=== PATIENT | male | born 1975 | race African-American/Black ===

== ENCOUNTER 2019-05-05 21:40 | Inpatient (IN) ==
[2019-05-05] MEDS ORDERED: DUONEB (A & A) INH ONE (22:01)
[2019-05-05] MEDS ORDERED: TORADOL IV ONE (22:01)
--- NOTE | 2019-05-05 23:36 | EKG Report ---
Test Performed on : 05/05/2019 9:51:57 PM Test Reason : cp Blood Pressure : / mmHG Vent. Rate : 110 BPM Atrial Rate : 110 BPM P-R Int : 176 ms QRS Dur : 090 ms QT Int : 326 ms P-R-T Axes : 075 084 064 degrees QTc Int : 441 ms Sinus tachycardia. Possible Left atrial enlargement Borderline ECG When compared with ECG of 19-DEC-2016 22:48, No significant change was found Confirmed by Alec Jenkins MD ([id number]) on 05/21/2019 7:37:13 AM
[2019-05-05] MEDS ORDERED: ASPIRIN PO ONE (23:49)
[2019-05-06 00:07] LABS: BASO# 0.06 X1000 (0.0-0.2); BASO% 0.3 % (0.0-0.8); EOS# 0.25 X1000 (0.0-0.7); EOS% 1.1 % (0.0-10.0); HEMATOCRIT 40.2 % (42.0-52.0); HEMOGLOBIN 13.4 g/dL (14.0-18.0); IMM GRAN# 0.07 X1000 (0.0-0.04); IMM GRAN% 0.3 % (0.0-0.5); LYMPH% 10.6 % (20.5-51.1); MCH 27.5 PG (27-31); MCHC 33.3 g/dL (33-37); MCV 82.5 FL (81-99); MONO# 2.02 X1000 (0.11-0.59); MONO% 9.3 % (1.7-9.3); MPV 9.1 FL (7.4-10.4); NEUT# 17.07 X1000 (1.4-6.5); NEUT% 78.4 % (42.2-75.2); PLT 368 X1000 (130-400); RBC 4.87 XMIL (4.7-6.1); RDW 14.1 % (11.5-14.5); WBC 21.77 X1000 (4.8-10.8)
[2019-05-06 00:08] LABS: INR 0.87; PROTIME 12.3 Seconds (11.0-16.0)
[2019-05-06 00:09] LABS: PTT 27.4 Seconds (22.3-41.8)
[2019-05-06 00:16] LABS: AGAP 17; ALBUMIN 5.1 g/dL (3.5-5.0); ALKALINE PHOSPHATASE 93 U/L (32-122); BUN 7 mg/dL (8-22); CALCIUM 10.2 mg/dL (8.8-10.2); CHLORIDE 100 mmol/L (98-107); COSMO 285; ESTIMATED GFR > 60; GLUCOSE 97 mg/dL (70-104); GOT 30 U/L (10-34); GPT 16 U/L (10-44); POTASSIUM 3.7 mmol/L (3.5-5.1); SODIUM 144 mmol/L (136-145); TCO2 27 mmol/L (25-35); TOTAL PROTEIN 8.2 g/dL (6.3-8.3)
[2019-05-06] MEDS ORDERED: ROCEPHIN 1 GM in NS 50 ML IV ONE (00:18)
[2019-05-06 00:21] LABS: UR AMPHETAMINES QUAL NONE DETECTED (NONE DETECT); UR BARBITUATES QUAL NONE DETECTED (NONE DETECT); UR BENZODIAZEPIN QUAL NONE DETECTED (NONE DETECT); UR CANNABINOIDS QUAL PRESUMPTIVE POSITIVE (NONE DETECT); UR COCAINE QUAL NONE DETECTED (NONE DETECT); UR METHADONE QUAL NONE DETECTED (NONE DETECT); UR METHAMPHETAMINE QUAL NONE DETECTED (NONE DETECT); UR OPIATES QUAL NONE DETECTED (NONE DETECT); UR OXYCODONE QUAL NONE DETECTED (NONE DETECT); UR PCP QUAL NONE DETECTED (NONE DETECT); UR PROPOXYPHENE QUAL NONE DETECTED (NONE DETECT); UR TCA QUAL NONE DETECTED (NONE DETECT)
[2019-05-06] MEDS ORDERED: TORADOL IV ONE (00:30)
[2019-05-06 00:32] LABS: URINE SOURCE CLEAN CATCH
[2019-05-06 00:57] LABS: BILIRUBIN URINE NEGATIVE (NEGATIVE); BLOOD URINE NEGATIVE (NEGATIVE); COLOR STRAW; GLUCOSE URINE NEGATIVE (NEGATIVE); KETONE URINE NEGATIVE (NEGATIVE); LEUKOCYTES URINE NEGATIVE (NEGATIVE); NITRITE URINE NEGATIVE (NEGATIVE); PH URINE 6.5; PROTEIN URINE NEGATIVE (NEGATIVE); SP GRAVITY URINE 1.005; TURBIDITY URINE CLEAR (CLEAR); UROBILINOGEN URINE NORMAL (NORMAL)
[2019-05-06 00:58] LABS: UR EPITHELIAL CELLS <10 /HPF (<10); URINE BACTERIA NEGATIVE /HPF; URINE RBC <10 /HPF (<10); URINE WBC <10 /HPF (<10)
--- NOTE | 2019-05-06 05:23 | PROVIDER DOCUMENTATION ---
This chart was entered by Christina Harris Scribe, acting as scribe for Kendall Segura MD. HPI-Chest Pain - General Chief Complaint: Chest Pain Stated Complaint: CHEST PAIN Time Seen by Provider: 05/05/19 21:55 Source: patient Allergies/Adverse Reactions: Patient Allergies Allergy/AdvReac Type Severity Reaction Status Date / Time No Known Allergies Allergy Verified 05/06/19 01:54 Home Medications: Home Medication List Medication Instructions Recorded Confirmed Last Taken Type NK [No Home Medications] 05/06/19 05/06/19 Unknown History - History of Present Illness-CP Nature of Presenting Problem: pt is a 43 yobm c/o cp radiating to neck, low back pain, cough, and mild sob since last night. pt sts just got over cold x 1 wk ago. coughing and breathing makes symptoms worse. pt has no medicial hx, no known rx allergies and doesn't take any regular rx. pt is a smoker. Location: reports: other (all over) Chest Pain Radiation: reports: neck Severity in ED: mild Onset/Duration: last night Timing: still present Context/Activities at Onset: reports: none Modifying Factors: improves with: breathing (worsens), coughing (worsens) Associated Symptoms: denies: diaphoresis, fever/chills, nausea, vomiting Similar Symptoms Previously?: No Review of Systems - Adult - REVIEW OF SYSTEMS - ADULT Constitutional: reports: no symptoms reported. denies: fever, fatique, night sweats Eyes: reports: no symptoms reported Ears, Nose, Mouth & Throat: reports: no symptoms reported Cardiovascular: reports: see HPI, chest pain. denies: heart murmur, irregular heart rate, poor circulation Respiratory: reports: see HPI, cough, shortness of breath (mild). denies: pleurisy, wheezing Gastrointestinal: reports: no symptoms reported. denies: diarrhea, nausea, vomiting Genitourinary: reports: no symptoms reported Musculoskeletal: reports: see HPI, back pain (low back), neck pain Integumentary: reports: no symptoms reported Neurological: reports: no symptoms reported Psychiatric: reports: no symptoms reported Endocrine: reports: no symptoms reported Hematologic/Lymphatic: reports: no symptoms reported Allergic/Immunologic: reports: no symptoms reported All Other Systems: Reviewed and Negative Past History - Adult - PAST MEDICAL HISTORY-ADULT Review of Records: reports: Nursing Assessment Review, Medications Reviewed, Social history reviewed & non-contributory. Major Childhood Illnesses: reports: denies history Cardiovascular: reports: denies history Respiratory: reports: denies history Gastrointestinal: reports: denies history Obstetrical/Gynecological: reports: denies history Genitourinary: reports: denies history Musculoskeletal: reports: denies history Neurological: reports: denies history Endocrine/Immune: reports: denies history Other Conditions: reports: denies history - PRIOR SURGERIES/PROCEDURES Surgical/Procedure History: reports: none - IMMUNIZATION STATUS Childhood Immunizations: See Nurse Assessment Flu Vaccine: See Nurse Assessment - FAMILY HISTORY Family History: reviewed, not pertinent - SOCIAL HISTORY Smoking: cigarettes, greater than 1 pack/day Provider spent 3-5 mins advising pt. on dangers of tobacco.: Discussed manners to quit use, and f/u contacts for add'l counseling. Substance Use: alcohol, marijuana Alcohol Use Frequency: every day Number of drinks per typical drinking period:: 3-4 drinks Physical Exam-General - PHYSICAL EXAM-ADULT Initial Vital Signs Reviewed: Yes - CONSTITUTIONAL General Appearance: appears well, alert, no apparent distress. negative: l ethargic, slow to respond, obtunded - EYES Eyes: PERRL/EOMI, pink conjunctivae - HEAD, EARS, NOSE, MOUTH & THROAT HENMT: normocephalic/atraumatic, moist mucous membranes, normal ENT inspection - NECK Neck: non-tender, full range of motion, supple, normal inspection - RESPIRATORY Respiratory: lungs clear, normal breath sounds, no pleuratic chest pain, no respiratory distress, no accessory muscle use, other (chest wall reproducable). negative: chest non-tender, respiratory distress, decreased breath sounds, accessory muscle use, crepitus - CARDIOVASCULAR Cardiovascular: normal peripheral pulses, regular rate, rhythm, no edema, no gallop, no JVD, no murmur. negative: friction rub, irregularly irregular, PMI displaced laterally - CHEST (BREASTS) Chest/Breast: normal breast inspection, no masses/lumps, tenderness (chest wall reproducable). negative: no tenderness, nipple discharge, mass/lump noted - GASTROINTESTINAL (ABDOMEN) Abdominal Exam: normal bowel sounds, non tender, soft - LYMPHATIC Lymphatic: no adenopathy - MUSCULOSKELETAL Back Exam: normal inspection, no CVA tenderness, no vertebral tenderness Extremity: normal range of motion, non-tender, normal inspection Peripheral Pulses: radial (R): 2+, radial (L): 2+ - SKIN Integumentary: normal color, normal turgor, warm/dry. negative: diaphoresis - NEUROLOGIC Neurologic: collar sewer II-XII nml as tested, grossly normal, no motor/sensory deficits - PSYCHIATRIC Psych/Mental Status: normal mood/affect, normal thought content, normal thought process, oriented x 3 - HEART Score HEART Score: History: Slightly Suspicious HEART Score: ECG: Non-Specific Repolarization Disturbance/LBBB/PM HEART Score: Age: < or = 45 Years HEART Score: Risk Factors for Atherosclerotic Disease: 1 or 2 Risk Factors HEART Score: Troponin: < or = Normal Limit Total HEART Score:: 2 Progress - PLAN OF CARE/RESULTS Progress/Plan/Lab Results: Vital Signs - 8 hr 05/05/19 21:53 05/05/19 22:24 05/06/19 00:45 Temperature 100.0 F H Pulse Rate 107 H 96 H Respiratory Rate 18 19 Blood Pressure 123/080 131/78 O2 Sat by Pulse Oximetry 99 96 05/06/19 02:14 Temperature Pulse Rate 95 H Respiratory Rate 18 Blood Pressure 144/82 O2 Sat by Pulse Oximetry 97 Laboratory Results - last 24 hr 05/05/19 05/05/19 05/05/19 23:26 23:35 23:35 WBC 21.77 H RBC 4.87 Hgb 13.4 L Hct 40.2 L MCV 82.5 MCH 27.5 MCHC 33.3 RDW Std Deviation 14.1 Plt Count 368 MPV 9.1 Immature Gran % (Auto) 0.3 Neut % (Auto) 78.4 H Lymph % (Auto) 10.6 L [place] % (Auto) 9.3 Eos % (Auto) 1.1 Baso % (Auto) 0.3 Immature Gran # (Auto) 0.07 H Neut # (Auto) 17.07 H Lymph # (Auto) 2.30 [place]och # (Auto) 2.02 H Eos # (Auto) 0.25 Baso # (Auto) 0.06 PT INR PTT (Actin FS) D-Dimer, Quantitative Sodium Potassium Chloride Carbon Dioxide Anion Gap BUN Creatinine Estimated GFR/1.73 m2 BUN/Creatinine Ratio Glucose Calculated Osmolality Calcium Total Bilirubin AST ALT Alkaline Phosphatase Troponin T < 0.010 Koo-H-Rdpseuksugw Pept Total Protein Albumin Globulin Albumin/Globulin Ratio Plasma Lactate Urine Source CLEAN CATCH Urine Color STRAW Urine Turbidity CLEAR Urine pH 6.5 Ur Specific [place] 1.005 Urine Protein NEGATIVE Ur Glucose (Stick) NEGATIVE Ur Ketones (Stick) NEGATIVE Urine Blood NEGATIVE Urine Nitrite NEGATIVE Urine Bilirubin NEGATIVE Urobilinogen Dipstick NORMAL Urine Leukocytes NEGATIVE Urine WBC (Auto) <10 Urine RBC (Auto) <10 U Epithel Cells (Auto) <10 Urine Bacteria (Auto) NEGATIVE Urine Opiates Screen Ur Oxycodone Screen Urine Methadone Screen U Propoxyphene Qual Ur Barbituates Screen Ur Tricyclics Screen Ur Phencyclidine Scrn Ur Amphetamines Screen U Methamphetamines Scrn U Benzodiazepines Scrn Urine Cocaine Screen U Cannabinoids Screen 05/05/19 05/05/19 05/05/19 23:35 23:35 23:35 WBC RBC Hgb Hct MCV MCH MCHC RDW Std Deviation Plt Count MPV Immature Gran % (Auto) Neut % (Auto) Lymph % (Auto) [place] % (Auto) Eos % (Auto) Baso % (Auto) Immature Gran # (Auto) Neut # (Auto) Lymph # (Auto) [place] # (Auto) Eos # (Auto) Baso # (Auto) PT 12.3 INR 0.87 PTT (Actin FS) 27.4 D-Dimer, Quantitative Sodium 144 Potassium 3.7 Chloride 100 Carbon Dioxide 27 Anion Gap 17 BUN 7 L Creatinine 1.0 Estimated GFR/1.73 m2 > 60 BUN/Creatinine Ratio 7 Glucose 97 Calculated Osmolality 285 Calcium 10.2 Total Bilirubin 0.30 AST 30 ALT 16 Alkaline Phosphatase 93 Troponin T Llz-A-[place] Pept 52 Total Protein 8.2 Albumin 5.1 H Globulin 3.0 Albumin/Globulin Ratio 2.0 Plasma Lactate Urine Source Urine Color Urine Turbidity Urine pH Ur Specific [place] Urine Protein Ur Glucose (Stick) Ur Ketones (Stick) Urine Blood Urine Nitrite Urine Bilirubin Urobilinogen Dipstick Urine Leukocytes Urine WBC (Auto) Urine RBC (Auto) U Epithel Cells (Auto) Urine Bacteria (Auto) Urine Opiates Screen Ur Oxycodone Screen Urine Methadone Screen U Propoxyphene Qual Ur Barbituates Screen Ur Tricyclics Screen Ur Phencyclidine Scrn Ur Amphetamines Screen U Methamphetamines Scrn U Benzodiazepines Scrn Urine Cocaine Screen U Cannabinoids Screen 05/05/19 05/05/19 05/06/19 23:35 23:47 00:35 WBC RBC Hgb Hct MCV MCH MCHC RDW Std Deviation Plt Count MPV Immature Gran % (Auto) Neut % (Auto) Lymph % (Auto) M[place] % (Auto) Eos % (Auto) Baso % (Auto) Immature Gran # (Auto) Neut # (Auto) Lymph # (Auto) [place] # (Auto) Eos # (Auto) Baso # (Auto) PT INR PTT (Actin FS) D-Dimer, Quantitative 0.49 Sodium Potassium Chloride Carbon Dioxide Anion Gap BUN Creatinine Estimated GFR/1.73 m2 BUN/Creatinine Ratio Glucose Calculated Osmolality Calcium Total Bilirubin AST ALT Alkaline Phosphatase Troponin T Lev-R-Ufjnmsqkiek Pept Total Protein Albumin Globulin Albumin/Globulin Ratio Plasma Lactate 1.6 Urine Source Urine Color Urine Turbidity Urine pH Ur Specific [place] Urine Protein Ur Glucose (Stick) Ur Ketones (Stick) Urine Blood Urine Nitrite Urine Bilirubin Urobilinogen Dipstick Urine Leukocytes Urine WBC (Auto) Urine RBC (Auto) U Epithel Cells (Auto) Urine Bacteria (Auto) Urine Opiates Screen NONE DETECTED Ur Oxycodone Screen NONE DETECTED Urine Methadone Screen NONE DETECTED U Propoxyphene Qual NONE DETECTED Ur Barbituates Screen NONE DETECTED Ur Tricyclics Screen NONE DETECTED Ur Phencyclidine Scrn NONE DETECTED Ur Amphetamines Screen NONE DETECTED U Methamphetamines Scrn NONE DETECTED U Benzodiazepines Scrn NONE DETECTED Urine Cocaine Screen NONE DETECTED U Cannabinoids Screen PRESUMPTIVE POSITIVE A Orders Category Date Time Status CHEST-1 VIEW [RAD] Stat Exams 05/05/19 21:[address] ABD/PELVIS W/IV CONT ONLY [CT] Stat Exams 05/06/19 00:[address] ANGIOGRM PULMONARY ARTERIES [CT] Stat Exams 05/06/19 05:15 Ordered BLOOD CULTURE [BLDCUL] Stat Lab 05/06/19 00:35 Ordered CBC WITH ELECTRONIC DIFF [HEME] Stat Lab 05/05/19 23:35 Completed COMPREHENSIVE METABOLIC PANEL [CHEM] Stat Lab 05/05/19 23:35 Completed D-DIMER [COAG] Stat Lab 05/06/19 01:46 Completed LACTATE, PLASMA [CHEM] Stat Lab 05/06/19 00:35 Completed PRO B-NATRIURETIC PEPTIDE Stat Lab 05/05/19 23:35 Completed PT [PROTIME WITH INR] [COAG] Stat Lab 05/05/19 23:35 Completed PTT [COAG] Stat Lab 05/05/19 23:35 Completed TROPONIN T Stat Lab 05/05/19 23:35 Completed UA [URINALYSIS W/POSS RFLX CULT] [URINALYSIS] Stat Lab 05/05/19 23:26 Completed URINE DRUG SCREEN PL Stat Lab 05/05/19 23:47 Completed Albuterol 2.5MG/Ipratrop 0.5MG [Duoneb (A & A)] Med 05/05/19 22:01 Discontinued 3 ml INH NOW ONE Aspirin Med 05/05/19 23:49 Discontinued 325 mg PO NOW ONE CefTRIAXONE [Rocephin] 1 gm Med 05/06/19 00:18 Discontinued 0.9% Sodium Chloride Inj [Ns] 50 ml IV NOW Ketorolac [Toradol] Med 05/06/19 00:30 Discontinued 15 mg IV NOW ONE Aerosol Treatments Routine Oth 05/05/19 22:01 Active Aerosol Treatments Stat Oth 05/05/19 22:01 Active EKG [EKG] Stat Ther 05/05/19 21:56 Draft Result Diagrams: 05/05/19 23:35 05/05/19 23:35 - EKG 1 Time of EKG reading by physician:: 23:46 EKG Read and Signed by:: Kendall Segura EKG Interpretation (*Must complete 3 of following elements*): Abnormal Rate: 88 Rhythm: NSR [place]: normal QRS: normal SC Interval: normal ST Wave: normal Comments: bilateral enlargement - CONSULTS/PCP/HOSPITALIST Notification #1 *Consult/PCP/Hospitalist*: Dr Sterling Time Discussed: 05:23 Consult Disposition: Admit Departure - Departure Date of Disposition Decision: 05/06/19 Time of Disposition Decision: 05:20 DIAGNOSIS: Leukocytosis, Chest pain, Cough Disposition: ADMITTED INPATIENT 09 Certified Medical Emergency: Emergent Condition: Fair Referrals and Follow-Ups: None,PCP [Primary Care Provider] - Work Excuses: Return to School/Parent Work Discharge Education: Steps to Quit Smoking, [id number] - Critical Care Note This patient required my direct & personal management of CC.: No Attestation - Physician/ KIRSTEN Attestation Patient care was provided by Advanced Practice Provider:: No The physician spent face to face time with patient:: Yes Advanced Practice Provider documentation review:: Supervising physician onsite and consulted in the evaluation and care of this patient. The physician did have a face to face encounter with the patient. This chart was documented by the indicated scribe, (Christina Harris, [place]) and accurately reflects the services I performed and decisions made by me, Kendall Barboza MD, as attested by the provider's signature.
[2019-05-06] MEDS ORDERED: ASPIRIN PO ONE (05:27)
[2019-05-06] MEDS: LEVAQUIN 500 MG/D5W 500 MG/100 ML IVPB IV SCH (06:05)
[2019-05-06] MEDS ORDERED: TYLENOL PO PRN (06:27)
--- NOTE | 2019-05-06 07:11 | Diag Imaging Result Doc PS360 ---
EXAM: CHEST-1 VIEW 05/05/2019 HISTORY: chest pain TECHNIQUE: Erect AP portable at 2220 COMMENT: There is no evidence of acute cardiac or pulmonary disease and compared to the previous study of 06/24/2015 considering differences in technique there has been no significant change. IMPRESSION: Normal chest. Electronically signed by Pankaj Aquino 05/06/2019 7:09 AM
[2019-05-06] MEDS: DUONEB (A & A) INH SCH ×5 (07:30→22:52)
--- NOTE | 2019-05-06 07:36 | Diag Imaging Result Doc PS360 ---
EXAM: CT ABD/PELVIS W/IV CONT ONLY HISTORY: RLQ abdo pain TECHNIQUE: CT abdomen and pelvis with intravenous contrast COMPARISON: None. FINDINGS: No calcified gallstones or adjacent inflammation. Normal liver, spleen, pancreas, and adrenal glands. There is a 1.4 cm left renal cyst. No hydronephrosis. No aortic aneurysm. Mild atherosclerosis. No bowel obstruction. Normal appendix. No abscess. No ascites. Urinary bladder is distended and appears normal. Normal prostate. IMPRESSION: No acute abnormality. A preliminary report was given at 1:24 AM This exam was performed using automated exposure control, adjustment of mA or kV according to patient size, and/or use of iterative reconstruction technique. Electronically signed by Felix Song 05/06/2019 7:34 AM
--- NOTE | 2019-05-06 07:43 | Diag Imaging Result Doc PS360 ---
EXAM: CT ANGIOGRM PULMONARY ARTERIES HISTORY: cough, leukocytosis TECHNIQUE: CT chest with intravenous contrast. Pulmonary arterial protocol with MIP images. COMPARISON: None. FINDINGS: No pleural effusions. No aortic aneurysm or dissection. Normal opacification of the pulmonary arteries and their branches. No cardiomegaly. No enlarged lymph nodes. There are tiny groundglass infiltrates scattered in the lungs. No consolidation. No bronchiectasis. IMPRESSION: 1. No pulmonary emboli 2. Small scattered groundglass infiltrates A preliminary report was given at 6:25 AM This exam was performed using automated exposure control, adjustment of mA or kV according to patient size, and/or use of iterative reconstruction technique. Electronically signed by Felix Song 05/06/2019 7:40 AM
[2019-05-06] MEDS ORDERED: ZOFRAN IV PRN (08:14)
[2019-05-06] MEDS ORDERED: NS 1,000 ML IV PRN (08:14)
--- NOTE | 2019-05-06 08:32 | EKG Report ---
Test Performed on : 05/05/2019 11:46:30 PM Test Reason : re-eval for chest pain Blood Pressure : / mmHG Vent. Rate : 088 BPM Atrial Rate : 088 BPM P-R Int : 126 ms QRS Dur : 082 ms QT Int : 364 ms P-R-T Axes : 077 084 074 degrees QTc Int : 440 ms Normal sinus rhythm. Biatrial enlargement Abnormal ECG When compared with ECG of 05-MAY-2019 21:51, (Unconfirmed) No significant change was found Unconfirmed Result
[2019-05-06] MEDS ORDERED: LOVENOX SUBQ SCH (09:00)
[2019-05-06 09:29] LABS: BASO# 0.05 X1000 (0.0-0.2); BASO% 0.4 % (0.0-0.8); EOS# 0.24 X1000 (0.0-0.7); HEMATOCRIT 37.2 % (42.0-52.0); HEMOGLOBIN 12.4 g/dL (14.0-18.0); IMM GRAN# 0.02 X1000 (0.0-0.04); IMM GRAN% 0.2 % (0.0-0.5); LYMPH# 1.79 X1000 (1.2-3.4); LYMPH% 14.7 % (20.5-51.1); MCH 27.7 PG (27-31); MCHC 33.3 g/dL (33-37); MCV 83.2 FL (81-99); MONO# 1.75 X1000 (0.11-0.59); MONO% 14.4 % (1.7-9.3); MPV 8.8 FL (7.4-10.4); NEUT# 8.31 X1000 (1.4-6.5); NEUT% 68.3 % (42.2-75.2); PLT 336 X1000 (130-400); RBC 4.47 XMIL (4.7-6.1); RDW 14.2 % (11.5-14.5); WBC 12.16 X1000 (4.8-10.8)
[2019-05-06 09:37] LABS: HEMOGLOBIN A1C 5.6 % (4.8-6.0)
[2019-05-06 10:10] LABS: AGAP 13; ALBUMIN 4.1 g/dL (3.5-5.0); ALKALINE PHOSPHATASE 77 U/L (32-122); BUN 9 mg/dL (8-22); CALCIUM 9.2 mg/dL (8.8-10.2); CHLORIDE 100 mmol/L (98-107); COSMO 280; CREATININE 1.1 mg/dL (0.7-1.2); ESTIMATED GFR > 60; GLUCOSE 103 mg/dL (70-104); GOT 22 U/L (10-34); GPT 12 U/L (10-44); POTASSIUM 3.5 mmol/L (3.5-5.1); SODIUM 141 mmol/L (136-145); TCO2 28 mmol/L (25-35); TOTAL PROTEIN 7.1 g/dL (6.3-8.3)
[2019-05-06 10:26] LABS: INFLUENZA A NEGATIVE (NEGATIVE); INFLUENZA B NEGATIVE (NEGATIVE)
[2019-05-06 10:35] LABS: FREE T4 0.94 ng/dL (0.93-1.70); TSH 0.96 uIUmL (0.27-4.20)
[2019-05-06 11:02] LABS: CK INDEX 0.1 (0.0-2.5)
[2019-05-06 14:41] LABS: C REACTIVE PROT QUANT 84.06 mg/L (0.00-5.00)
[2019-05-06] MEDS ORDERED: ROCEPHIN 2 GM in NS 50 ML IV SCH (18:00)
--- NOTE | 2019-05-06 18:42 | ECHO REPORT ---
ORDER DATE: 05/06/2019 INTERPRETING PHYSICIAN: Espinoza Cavazos MD. CLINICAL INDICATIONS: A 43-year-old male with chest pain. M-MODE MEASUREMENTS: Left ventricle end diastole: 4.1 cm. Left ventricle end systole: 2.3 cm. Posterior wall: 1.0 cm. Interventricular septum: 1.0 cm. Left atrium: 2.8 cm. Aortic diameter: 3.1 cm. SUMMARY OF 2-DIMENSIONAL IMAGIN. The left ventricular function is normal. Ejection fraction is 69%. There is no wall motion abnormality. 2. The aortic valve has three cusps. They open normally. Color flow mapping unremarkable. 3. The pulmonic valve looks normal. Color flow mapping unremarkable. 4. The tricuspid valve shows a mild degree of regurgitation. 5. Pulmonary pressure is estimated at 34 mmHg. 6. The mitral valve looks normal. Color flow mapping unremarkable. 7. Pulsed wave Doppler of mitral inflow is normal. 8. Tissue Doppler of septal and lateral mitral annulus averages 16 cm. There is no diastolic dysfunction. 9. There is no pericardial effusion, no mass, and no thrombus. 10.The atria and the right ventricle are normal in size. SUMMARY: This study shows: 1. Normal left ventricular systolic function with ejection fraction of 69% with normal chamber size. 2. No diastolic dysfunction. 3. Pulmonary pressure of 34 mmHg. 4. No evidence of valvular abnormality. Clinical correlation is recommended. cc: MD Luz Marina Kim CRNP
--- NOTE | 2019-05-06 18:45 | HISTORY AND PHYSICAL ---
PRIMARY CARE PROVIDER: No one. CHIEF COMPLAINT: Shortness of breath. HISTORY OF PRESENT ILLNESS: Mr. Ko Morales is a 43-year-old, - [place] male. He has no medical history, takes no home medications. A few days ago, had been outside blowing some leaves, and then 2 nights ago, developed a cough, and he would have chest pain every time he coughed and he was producing yellow phlegm, which he states he is still producing. He denies fever, but states that when he came in, they told him he had fever. Imaging reveals that there is a bilateral pneumonia. He smokes cigarettes daily, but it is less than a half pack per day. He was started on IV antibiotics and the white blood cell count has already started to decrease. PAST MEDICAL HISTORY: None. SURGICAL HISTORY: None. SOCIAL HISTORY: Less than a half pack per day since the age of 16. Two to three 3 days a week. Marijuana last month. . 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 FAMILY HISTORY: Mother, no medical conditions. Father of unknown cancer. ALLERGIES: No known drug allergies. HOME MEDICATIONS: None. REVIEW OF SYSTEMS: A 14-point review of systems is complete and all were negative, except for those mentioned above in HPI. PHYSICAL EXAMINATION: VITAL SIGNS: Temperature 98.0 degrees, heart rate 81, respiratory rate 16, blood pressure 136/84, O2 saturation 100% on room air. GENERAL: Mr. Ko Morales is a 43-year-old, -[place] male. He is in no acute distress. He is able to answer questions appropriately. HEENT: Atraumatic, normocephalic. Pupils equal, round, reactive to light. Extraocular movements intact. Mucous membranes are moist. NECK: Trachea midline. CARDIOVASCULAR: S1, S2. Regular rate and rhythm. No rubs, gallops, murmurs. No lower extremity edema. Dorsalis and radial pulses 2+. Negative JVD or carotid bruits. PULMONARY: Clear to auscultate. Bilateral breath sounds, decreased in the bases. No accessory muscle use or work of breathing noted. GASTROINTESTINAL: Soft, nontender, nondistended. Positive bowel sounds x4. EXTREMITIES: Moves all extremities equally. Full range of motion. NEUROLOGIC: A O x3. Follows commands. Sensory is intact. SKIN: Warm, dry, intact. LABORATORY DATA: Original white blood cell count was 21,000, is down to 12,000. Hemoglobin 12, hematocrit 37, platelet count 336,000. Sodium 141, potassium 3.5, BUN 9, creatinine is 1.1, glucose is 103. Hemoglobin A1c is 5.6. Magnesium 2.0, bilirubin 0.20, AST 22, ALT 12. ProBNP 52. Albumin is 4.1. Triglycerides 74, total cholesterol 169. TSH 0.96, free T4 of 0.94. Serum lactate 1.6. Urinalysis negative. Urine drug screen positive for cannabinoid. Influenza negative. CK was 1094. Troponin less than 0.01. CRP pending. IMAGING: Chest x-ray: Normal chest. Abdominal and pelvic CT: No acute findings. Pulmonary arteriogram: No pulmonary emboli. Positive for small scattered ground-glass infiltrates. EKG: Sinus tachycardia, rate 110, QTc 441. Repeat EKG: Sinus rhythm, 88, QTc 440. ASSESSMENT AND PLAN: 1. Bilateral pneumonia scattered throughout the lungs. He was started on ceftriaxone in the ER, but transitioned to Levaquin and ceftriaxone both. Nebulizers every 4 hours, but he is not in any type of respiratory distress and white count has dropped from 21 to 12. Sputum culture has been ordered. 2. Tobacco abuse. Cessation discussed. 3. Deep venous thrombosis prophylaxis. Lovenox. Dictated by PARAG Mojica for Edward Ramos MD Addendum: Patient seen and examined by myself. Agree with PARAG note. It reflects my assessment and plan. Patient is being admitted to hospital for bilateral pneumonia. He is not requiring any oxygen supplementation. Will start Levaquin and Ceftriaxone and monitor patient closely. cc: PARAG Mojica MD [facility]
[2019-05-07] MEDS: DUONEB (A & A) INH SCH ×2 (03:16→07:44)
[2019-05-07] MEDS: LEVAQUIN 500 MG/D5W 500 MG/100 ML IVPB IV SCH (05:28)
[2019-05-07 06:23] LABS: AGAP 13; ALBUMIN 3.9 g/dL (3.5-5.0); ALKALINE PHOSPHATASE 75 U/L (32-122); BUN 10 mg/dL (8-22); CALCIUM 9.1 mg/dL (8.8-10.2); CHLORIDE 102 mmol/L (98-107); COSMO 280; ESTIMATED GFR > 60; GLUCOSE 99 mg/dL (70-104); GOT 22 U/L (10-34); GPT 12 U/L (10-44); POTASSIUM 3.2 mmol/L (3.5-5.1); SODIUM 141 mmol/L (136-145); TCO2 26 mmol/L (25-35); TOTAL PROTEIN 6.9 g/dL (6.3-8.3)
[2019-05-07 06:24] LABS: BASO# 0.04 X1000 (0.0-0.2); BASO% 0.5 % (0.0-0.8); EOS# 0.29 X1000 (0.0-0.7); EOS% 3.7 % (0.0-10.0); HEMATOCRIT 36.3 % (42.0-52.0); HEMOGLOBIN 11.9 g/dL (14.0-18.0); IMM GRAN# 0.02 X1000 (0.0-0.04); IMM GRAN% 0.3 % (0.0-0.5); LYMPH# 1.63 X1000 (1.2-3.4); LYMPH% 20.7 % (20.5-51.1); MCH 27.5 PG (27-31); MCHC 32.8 g/dL (33-37); MCV 83.8 FL (81-99); MONO# 1.16 X1000 (0.11-0.59); MONO% 14.7 % (1.7-9.3); MPV 9.1 FL (7.4-10.4); NEUT# 4.73 X1000 (1.4-6.5); NEUT% 60.1 % (42.2-75.2); PLT 328 X1000 (130-400); RBC 4.33 XMIL (4.7-6.1); RDW 14.3 % (11.5-14.5); WBC 7.87 X1000 (4.8-10.8)
--- NOTE | 2019-05-07 07:37 | Diag Imaging Result Doc PS360 ---
EXAM: CHEST-2 VIEWS HISTORY: pna followup TECHNIQUE: Two views COMPARISON: 05/05/2019 FINDINGS: The lungs are well expanded. The heart is not enlarged. The vessels are not distended. There are no infiltrates. No pleural effusions. IMPRESSION: No pneumonia Electronically signed by Felix Song 05/07/2019 7:34 AM
[2019-05-07 07:39] VITALS: BP 134/83
--- NOTE | 2019-05-08 14:50 | DISCHARGE SUMMARY ---
ADMISSION DATE: 05/05/2019 DISCHARGE DATE: 05/07/2019 ADMISSION DIAGNOSES: 1. Bilateral pneumonia scattered throughout the lungs. 2. Tobacco abuse. DISCHARGE DIAGNOSES: 1. Bilateral pneumonia scattered throughout the lungs. 2. Tobacco abuse. CONSULTATIONS: None. HOSPITAL COURSE: Mr. Ko Morales is a 43-year-old male who came in with complaints of shortness of breath, coughing up some phlegm. Apparently, he had a few days ago been blowing some leaves outside and then 2 nights ago developed a cough. Every time he coughed it caused chest pain, production of yellow phlegm. He denied fever, but when he came in, he was told he had fever. Imaging revealed that he had scattered bilateral pneumonia. He is a daily smoker of about a half pack per day. He was initiated on fluids and IV antibiotics. White blood cell count started out at 21,000 and today is down to 7,000. Currently afebrile and will go home on antibiotics. DISCHARGE VITAL SIGNS: Temperature 98.0 degrees, heart rate 66, respiratory rate 16, blood pressure 134/83, O2 saturation 100% on room air. DISCHARGE LAB DATA: White blood cells 7,000, hemoglobin 11, hematocrit 36, platelet count 328,000. Sodium 141, potassium 3.2, BUN 10, creatinine is 1.0, glucose 99, calcium 9.1, magnesium 2.0, bilirubin 0.20, AST 22, ALT 12. He had a CRP of 84. CK was 1,094. Troponin was less than 0.01. Albumin 3.9. Urinalysis was negative. Urine drug screen had cannabinoids. Flu was negative. Blood cultures prelim are negative. PERTINENT IMAGING: Chest x-ray, normal chest. Then he went for an abdominal and pelvic CT, that was nothing acute. Then he had the pulmonary arteriogram which showed no pulmonary emboli but had small scattered ground-glass infiltrates. Echocardiogram: Normal, ejection fraction of 69%. There was no diastolic dysfunction. Had a pulmonary pressure 34 mmHg. Then a repeat chest x-ray this morning showed no pneumonia. EKG on admit: Sinus tachycardia rate 110, QTc was 441. Then on the had another EKG that was normal sinus rhythm, rate 88, QTc was 440. DISCHARGE MEDICATIONS: 1. Tylenol 650 mg p.o. q.6 hours p.r.n. 2. Levaquin 750 mg p.o. daily for 10 days. DISCHARGE DIET: Regular. DISCHARGE ACTIVITY: As tolerated. DISCHARGE PHYSICIAN FOLLOW UP: Need to find a primary care provider and follow up with them. DISCHARGE INSTRUCTIONS: If your condition changes, contact a physician and/or return to the emergency department. Changes may include, but not limited to shortness of breath, increased fatigue, excessive bleeding, unexplained weight loss or gain, unimaginable pain, signs or symptoms of infection. Take all medications as prescribed. You may return to work in 2 days. Call and make a follow-up appointment with her primary care provider. In the event you do not have a primary care provider, information about [facility] has been included in your discharge packet. If symptoms persist or become worse, come to the emergency department. DISCHARGE DISPOSITION: Home. Dictated by PARAG Mojica for Edward Ramos MD Addendum: Patient seen and examined by myself. Agree with PARAG note. It reflects my assessment and plan. Patient is being discharged in stable condition. Patient needs to find a PCP and follow up with them. cc: PARAG Mojica MD MTDD
== END 2019-05-07 11:19 | disposition home or self-care (01) | DRG 195 ==
LOC: P.ED 21:40 → EDIPHOLD 05-06 06:28 → P.MEDSURG 05-06 08:53
PROVIDERS: ATTEND Internal Medicine